=== PATIENT | female | born 1960 | race Caucasian/White ===

== ENCOUNTER 2021-02-21 13:36 | Outpatient (CLI) | payer OTHER | END 2021-02-21 13:37 | disposition home or self-care (01) | LOC: ULT 13:36 | PROVIDERS: ATTEND Family Medicine | DX: R60.0 Localized edema (principal); R06.00 Dyspnea, unspecified; I08.3 Combined rheumatic disorders of mitral, aortic and tricuspid valves | CPT/HCPCS: 93306 ==